=== PATIENT | female | born 1985 ===

== ENCOUNTER → 2023-04-03 13:02 | Outpatient (BNVA) | payer OTHER, SELFPAY | PROVIDERS: Visit Provider Physician Assistant Surgical ==

== ENCOUNTER 2023-05-08 12:53 | Outpatient (AMB) | payer OTHER, SELFPAY ==
--- NOTE | 2023-05-08 12:58 | A.OFFVIS_ITS ---
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 she has 2 family members who recently has LSG's with [facility]. Her goal is to be healthier, enjoy more activities.. She reports first being concerned about her weight 3 years ago. She has tried multiple methods of weight loss including different diet and exercise plans without permanent results. She lives with her boyfriend. She works 5 days per week, 7am - 3pm. She wakes at: 4:45 am bed at 8:30 pm Breakfast: 8:30 am - bagel with cream cheese OR bowl of cereal. water Lunch: skips lunch 3d/ week, 12 pm - leftovers mostly OR will get sushi or salad with grilled chicken and fruit. water Dinner: 4pm - sweet potato, chicken wings and corn. lemonade or flavored water After dinner: fruit after dinner or yogurt Other snacks: none Liquids: No soda, drinks sweetened drinks daily Alcohol intake: a few times per year, tobacco: none, marijuana: none Exercise: no membership now. 3d/week walks [employer] - over 2-3 hours. Last mammogram: baseline, all normal Last pap smear: up to date control method: Mirena IUD GENESIS:1 ESS:3 GERD:2 QOL:6 PFSH Surgical History Hx of eye surgery Hx of knee surgery Family History Mother Brain tumor Hypertension History of knee replacement Sister No problems noted. Brother Mental illness in member of household Social History (Updated 04/03/23 @ 13:39 by Mirian Negron LPN) Alcohol intake: current Alcohol intake frequency: holidays/special occasions only Patient Tobacco Use Status: Never used Tobacco Physical Exam Const General: cooperative, no acute distress and well developed Nutritional Appearance: obese Orientation/consciousness: patient oriented x3 HEENT Head: Yes normal to inspection Neck Neck: Yes normal visual inspection Thyroid: Thyroid normal Resp Effort & Inspection: normal respiratory effort Auscultation: clear to auscultation bilaterally Cardio Rate: regular rate Rhythm: regular rhythm Heart sounds: S1 normal heart sound present, S2 normal heart sound present and no murmurs GI Inspection: No distended and Yes obesity Palpation (GI): Soft to palpation, nontender and no guarding Skin General skin exam: no rashes or lesions noted and other (warm and dry) Wounds: no wounds Hair: normal Neuro General: patient oriented x3 Extrem General: Yes no pedal edema and Yes no calf tenderness Psych Attitude: cooperative Thought process: Normal thought process present Thought content: Normal thought content present Insight: Good insight present (Psych) Judgement: Good judgement present (Psych) Assessment & Plan Assessment & Plan (1) Morbid obesity: Code(s): E66.01 - Morbid (severe) obesity due to excess calories Plan: This is a 37 yo woman with morbid obesity who will start SWL program to prepare for bariatric surgery. Blood work, h pylori , CXR, ECG, Abd ULS and UGI have been ordered. She is being scheduled for RD and BH initial consultations. She will start SWL classes and watch at 3 classes before her next appt with Stefanie. 1. Adequate sleep of 7-8 hours per night discussed 2. Healthy meal plan - stop skipping meals and stop all sweetened drinks All meals/MR's need to take 20 minutes to complete 8:30am - 30 gram shake 12 pm - 30 gram shake 4 pm- dinner of 6 oz lean protein, 8 oz vegetable, 1 serving fruit 7 pm- bar or yogurt Exercise - Cardio 3 d week = walk or bowlfex 3d/wk - 350 calories 3d/week TBP - The importance of avoiding and breast feeding for at least 18 months after bariatric surgery was discussed in the information session and was reinforced today. Pt will purchase body composition analyzer (recommended list given to patient) and weight herself weekly. Next appt with me in 3 weeks. Text me with any questions and weekly weights. Patient is morbidly obese and is not considered stable at this time.?I spent a total of 60 minutes reviewing/updating records, examining the patient and counseling the patient on weight management as detailed above. (2) Asthma: Code(s): J45.909 - Unspecified asthma, uncomplicated (3) Pre-op evaluation: Code(s): Z01.818 - Encounter for other preprocedural examination (4) PCOS (polycystic ovarian syndrome): Code(s): E28.2 - Polycystic ovarian syndrome Orders: Orders Vitamin B12 and Folate Today E28.2 - Polycystic ovarian syndrome, E66.01 - Morbid (severe) obesity due to excess calories, J45.909 - Unspecified asthma, uncomplicated, Z01.818 - Encounter for other preprocedural examination Comprehensive Met. Panel Today E28.2 - Polycystic ovarian syndrome, E66.01 - Morbid (severe) obesity due to excess calories, J45.909 - Unspecified asthma, uncomplicated, Z01.818 - Encounter for other preprocedural examination C Reactive Protein Today E28.2 - Polycystic ovarian syndrome, E66.01 - Morbid (severe) obesity due to excess calories, J45.909 - Unspecified asthma, uncomplicated, Z01.818 - Encounter for other preprocedural examination Ferritin Today E28.2 - Polycystic ovarian syndrome, E66.01 - Morbid (severe) obesity due to excess calories, J45.909 - Unspecified asthma, uncomplicated, Z01.818 - Encounter for other preprocedural examination Hemoglobin A1c Today E28.2 - Polycystic ovarian syndrome, E66.01 - Morbid (severe) obesity due to excess calories, J45.909 - Unspecified asthma, uncomplicated, Z01.818 - Encounter for other preprocedural examination Insulin Today E28.2 - Polycystic ovarian syndrome, E66.01 - Morbid (severe) obesity due to excess calories, J45.909 - Unspecified asthma, uncomplicated, Z01.818 - Encounter for other preprocedural examination IRON PROFILE Today E28.2 - Polycystic ovarian syndrome, E66.01 - Morbid (severe) obesity due to excess calories, J45.909 - Unspecified asthma, uncomplicated, Z01.818 - Encounter for other preprocedural examination Lipid Panel Today E28.2 - Polycystic ovarian syndrome, E66.01 - Morbid (severe) obesity due to excess calories, J45.909 - Unspecified asthma, uncomplicated, Z01.818 - Encounter for other preprocedural examination PTHI Today E28.2 - Polycystic ovarian syndrome, E66.01 - Morbid (severe) obesity due to excess calories, J45.909 - Unspecified asthma, uncomplicated, Z01.818 - Encounter for other preprocedural examination TSH reflex Free T4 Today E28.2 - Polycystic ovarian syndrome, E66.01 - Morbid (severe) obesity due to excess calories, J45.909 - Unspecified asthma, uncomplicated, Z01.818 - Encounter for other preprocedural examination Vitamin A Today E28.2 - Polycystic ovarian syndrome, E66.01 - Morbid (severe) obesity due to excess calories, J45.909 - Unspecified asthma, uncomplicated, Z01.818 - Encounter for other preprocedural examination Vitamin B1 Today E28.2 - Polycystic ovarian syndrome, E66.01 - Morbid (severe) obesity due to excess calories, J45.909 - Unspecified asthma, uncomplicated, Z01.818 - Encounter for other preprocedural examination Vitamin D 25-OH Total Today E28.2 - Polycystic ovarian syndrome, E66.01 - Morbid (severe) obesity due to excess calories, J45.909 - Unspecified asthma, uncomplicated, Z01.818 - Encounter for other preprocedural examination Zinc Today E28.2 - Polycystic ovarian syndrome, E66.01 - Morbid (severe) obesity due to excess calories, J45.909 - Unspecified asthma, uncomplicated, Z01.818 - Encounter for other preprocedural examination ECG 12 lead EKG Today E28.2 - Polycystic ovarian syndrome, E66.01 - Morbid (severe) obesity due to excess calories, J45.909 - Unspecified asthma, uncomplicated, Z01.818 - Encounter for other preprocedural examination FL upper GI w air Today E28.2 - Polycystic ovarian syndrome, E66.01 - Morbid (severe) obesity due to excess calories, J45.909 - Unspecified asthma, uncomplicated, Z01.818 - Encounter for other preprocedural examination Complete Blood Count Auto Diff Today E28.2 - Polycystic ovarian syndrome, E66.01 - Morbid (severe) obesity due to excess calories, J45.909 - Unspecified asthma, uncomplicated, Z01.818 - Encounter for other preprocedural examination H Pylori Breath Test Today E28.2 - Polycystic ovarian syndrome, E66.01 - Morbid (severe) obesity due to excess calories, J45.909 - Unspecified asthma, uncomplicated, Z01.818 - Encounter for other preprocedural examination US abdomen comp w elastography Today E28.2 - Polycystic ovarian syndrome, E66.01 - Morbid (severe) obesity due to excess calories, J45.909 - Unspecified asthma, uncomplicated, Z01.818 - Encounter for other preprocedural examination XR chest 2V Today E28.2 - Polycystic ovarian syndrome, E66.01 - Morbid (severe) obesity due to excess calories, J45.909 - Unspecified asthma, uncomplicated, Z01.818 - Encounter for other preprocedural examination Referrals Behavioral Health Referral E28.2 - Polycystic ovarian syndrome, E66.01 - Morbid (severe) obesity due to excess calories, J45.909 - Unspecified asthma, uncomplicated, Z01.818 - Encounter for other preprocedural examination Nutrition/Dietitian Referral E28.2 - Polycystic ovarian syndrome, E66.01 - Morbid (severe) obesity due to excess calories, J45.909 - Unspecified asthma, uncomplicated, Z01.818 - Encounter for other preprocedural examination Coding Level of Care Code New Pt Level 5 (13580) Diagnoses Morbid obesity E66.01 Asthma J45.909 Pre-op evaluation Z01.818 PCOS (polycystic ovarian syndrome) E28.2
[2023-05-08 13:06] VITALS: BP 121/84; PULSE 103; TEMP 36.2; BMI 49.5
== END 2023-05-08 13:58 | disposition home or self-care (01) ==
PROVIDERS: Visit Provider Physician Assistant
DX: E66.01 Morbid (severe) obesity due to excess calories (principal); Z68.42 Body mass index [BMI] 45.0-49.9, adult; J45.909 Unspecified asthma, uncomplicated; E28.2 Polycystic ovarian syndrome
CPT/HCPCS: 99205

== ENCOUNTER → 2023-05-08 12:53 | Outpatient (BNVA) | payer OTHER, SELFPAY | PROVIDERS: Visit Provider Physician Assistant | DX: Z01.818 Encounter for other preprocedural examination (principal); E66.01 Morbid (severe) obesity due to excess calories; E28.2 Polycystic ovarian syndrome; J45.909 Unspecified asthma, uncomplicated | CPT/HCPCS: 99202 ==

== ENCOUNTER 2023-05-23 13:31 | Outpatient (AMB) | payer OTHER, SELFPAY ==
--- NOTE | 2023-05-23 13:45 | A.OFFVIS_ITS ---
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 she is going today Has made progress in other ways however. stopped emotional eating, instead jounrnaled her feelings and felt great. Exercise: none right now. her application consultant goals are to hike [place] and do more active things with him. Wants to walk/run a 5K for fundraising. [facility] online classes: completed , scored well Dietary counseling reduction Lifestyle Food frequency Water: daily, Soda: never and Juice: never Diagnosis Nutrition problem #1 overweight/obesity As related to (etiology) #1 excess energy intake and physical inactivity As evidenced by (sign/symptom) #1 high BMI Monitoring/Goals Nutrition problem monitoring total energy intake, level of knowledge/skill, total PRO intake, total CHO intake and weight Outcome progress progressing Learning/Education Readiness to learn excellent Stages of change action Educational materials provided Yes Most Recent Diabetes Results: No Data to Display [facility] Surgical History Hx of eye surgery Hx of knee surgery Family History Mother Brain tumor Hypertension History of knee replacement Sister No problems noted. Brother Mental illness in member of household Social History Alcohol intake: current Alcohol intake frequency: holidays/special occasions only Patient Tobacco Use Status: Never used Tobacco Assessment & Plan Assessment & Plan (1) Morbid obesity: Code(s): E66.01 - Morbid (severe) obesity due to excess calories Patient Instructions: She will get the shakes and bars today. Educated about macros and answered all questions. She will begin a consistent exercise routine, walking 30 minutes and increasing as tolerated. f/u with me 06/19 11:30 OV Coding Level of Care Code Nutr Indiv Intake (87397) Diagnoses Morbid obesity E66.01 Time Spent (min) 45
[2023-05-23 14:30] VITALS: BMI 49.1
== END 2023-05-23 14:14 | disposition home or self-care (01) ==
PROVIDERS: Visit Provider Dietitian, Registered
DX: E66.01 Morbid (severe) obesity due to excess calories (principal)

== ENCOUNTER → 2023-05-23 13:31 | Outpatient (BNVA) | payer OTHER, SELFPAY | PROVIDERS: Visit Provider Dietitian, Registered | DX: E66.01 Morbid (severe) obesity due to excess calories (principal); Z68.42 Body mass index [BMI] 45.0-49.9, adult; Z71.3 Dietary counseling and surveillance | CPT/HCPCS: 97802 ==

== ENCOUNTER 2023-05-29 13:04 | Outpatient (AMB) | payer OTHER, SELFPAY ==
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
== END 2023-05-29 13:17 | disposition home or self-care (01) ==
LOC: HO.HBST 13:04
PROVIDERS: Visit Provider Counselor Mental Health
DX: F41.1 Generalized anxiety disorder (principal); E66.01 Morbid (severe) obesity due to excess calories; E28.2 Polycystic ovarian syndrome
CPT/HCPCS: 90791

== ENCOUNTER → 2023-05-29 13:04 | Outpatient (BNVA) | payer OTHER, SELFPAY | PROVIDERS: Visit Provider Counselor Mental Health ==

== ENCOUNTER 2023-06-05 14:02 | Outpatient (AMB) | payer OTHER, SELFPAY ==
--- NOTE | 2023-06-05 14:04 | MHC.OFFVISWM ---
Intake VS Expanded 06/05/23 14:11 Height 5 ft 1 in Weight 257 lb 6.4 oz BMI 48.6 BP 116/67 Blood Pressure Location Rt brachial Blood Pressure Position Sitting Respiratory Rate 16 Pulse 89 Pulse Source Pulse Oximeter Temp 98.9 F Temperature Source Temporal Artery Scan Pulse Oximetry 96 Oxygen Delivery Method Room Air Body Fat 122.0 Body Fat Percentage 47.4 Free Fat Mass 135.4 Muscle Mass 128.6 Visceral Mass 15.0 Water Mass 97.0 BMR 1,937 Intake Visit Reasons: (OV) F/U SWL Allergies pollen extracts Allergy (Intermediate, Verified 06/05/23 14:12) Sneezing Medication List - Last Reconciled 06/05/23 by Daisha Chou PA-C albuterol sulfate 90 mcg/actuation 2 puffs inhalation Q6H PRN metformin 500 mg PO TID HPI HPI Comments History of Present Illness Details This is the patients second appt for SWL. Starting weight was 261.4 lbs on 05/08/23. TBWL is 3.4 lbs or 2 % TBWL. Meal plan: 8:30 am - Premier RTD 12 pm - same shake 4pm - 6 oz boneless chicken or fish and 6 oz frozen vegetables 8pm - bar or yogurt Exercise plan: not yet. wants to use her bowflex Pre op work up completed as follows: SWL classes - 04/22 appts - josie Shook RD appts - follow up on 06/19 H pylori - not done yet Labs, CXR and ECG - not done yet ULS and UGI - July 17 PFS Surgical History Hx of eye surgery Hx of knee surgery Family History Mother Brain tumor Hypertension History of knee replacement Sister No problems noted. Brother Mental illness in member of household Social History Alcohol intake: current Alcohol intake frequency: holidays/special occasions only Patient Tobacco Use Status: Never used Tobacco Physical Exam Vital Signs: Last Vital Signs Temp 98.9 F 06/05/23 14:11 Pulse 89 06/05/23 14:11 Resp 16 09/21/23 14:11 BP 116/67 06/05/23 14:11 Pulse Ox 96 06/05/23 14:11 Oxygen Delivery Method Room Air 06/05/23 14:11 BMI result Body Mass Index 48.6 Assessment & Plan Assessment & Plan (1) Morbid obesity: Code(s): E66.01 - Morbid (severe) obesity due to excess calories Plan: Great start and meal plan changes. Will buy scale today and send me weekly weights. No changes to meal plan H pylori today Will start exercise now - 5 d/week, Bowflex for 300 calories or TBP videos. All appts reviewed, will get labs, CXR and ECG done tomorrow. Next appt with me in 3 weeks. Patient is morbidly obese and is not considered stable at this time. I spent 30 minutes in total with patient reviewing/updating records, examining the patient and counseling the patient on weight management as detailed above. Coding Level of Care Code Est Pt Level 4 (18180) Diagnoses Morbid obesity E66.01
[2023-06-05 14:11] VITALS: BP 116/67; PULSE 89; RESP 16; TEMP 37.2; O2SAT 96; BMI 48.6
== END 2023-06-05 14:35 | disposition home or self-care (01) ==
PROVIDERS: Visit Provider Physician Assistant
DX: E66.01 Morbid (severe) obesity due to excess calories (principal)
CPT/HCPCS: 99214

== ENCOUNTER → 2023-06-05 14:02 | Outpatient (BNVA) | payer OTHER, SELFPAY | PROVIDERS: Visit Provider Physician Assistant | DX: E66.01 Morbid (severe) obesity due to excess calories (principal); Z68.42 Body mass index [BMI] 45.0-49.9, adult; Z11.0 Encounter for screening for intestinal infectious diseases | CPT/HCPCS: 99211; 99212 ==

== ENCOUNTER 2023-06-05 19:05 | Outpatient (REF) | payer OTHER, SELFPAY ==
[2023-06-06 16:40] LABS: H Pylori Breath Test Negative (Negative)
== END 2023-06-05 19:06 | disposition home or self-care (01) ==
LOC: HO.LNP 19:05
PROVIDERS: Visit Provider Physician Assistant
DX: E66.01 Morbid (severe) obesity due to excess calories (principal); E28.2 Polycystic ovarian syndrome; Z01.818 Encounter for other preprocedural examination; J45.909 Unspecified asthma, uncomplicated
CPT/HCPCS: 83013

== ENCOUNTER → 2023-06-17 16:32 | Outpatient (BNVA) | payer OTHER, SELFPAY | PROVIDERS: Visit Provider Dietitian, Registered | DX: E66.9 Obesity, unspecified (principal); Z71.3 Dietary counseling and surveillance | CPT/HCPCS: 97803 ==

== ENCOUNTER 2023-07-17 08:53 | Outpatient (REF) | payer OTHER, SELFPAY ==
--- NOTE | ~2023-07-17 | US_ITS ---
EXAMINATION: US COMPLETE ABDOMEN WITH LIVER ELASTOGRAPHY CLINICAL INFORMATION: Morbid obesity COMPARISON: None available. TECHNIQUE: Real-time imaging of the abdominal viscera. Noninvasive ultrasound liver fibrosis assessment is performed using Rachael ElastPQ point quantification shear wave elastography (2D-SWE) with a C5-2 MHz transducer. Multiple elastography samples are obtained. FINDINGS: PANCREAS: Normal. The visualized pancreatic head and body are normal in appearance. The remainder of the pancreas is obscured from visualization by the overlying bowel gas. ABDOMINAL AORTA: The proximal, middle, and distal aortic segments are normal in caliber. INFERIOR VENA CAVA: Visualized portions are normal. LIVER: There is diffusely increased echogenicity consistent with fatty infiltration/hepatocellular disease. No focal lesion or intrahepatic biliary duct dilatation. The right lobe measures 14.6 cm in length. The left lobe measures 10.5 cm in length. Portal flow is hepatopedal Shear wave liver elastography median stiffness is 1.99 m/s (reference: normal median stiffness is 1.3 m/s or less). IQR/median stiffness to assess sampling precision is 0.04 (reference: good quality data set is IQR/median stiffness of 0.15 or less). GALLBLADDER: Cholelithiasis is present without evidence of acute cholecystitis. The largest gallbladder stone measures 1.5 x 0.5 x 1.5 cm in size. COMMON BILE DUCT: Normal in caliber measuring 0.5 cm in diameter. RIGHT KIDNEY: Normal. No hydronephrosis. No renal calculi or focal parenchymal lesions. The kidney measures 13 cm in maximum dimension. LEFT KIDNEY: Normal. No hydronephrosis. No renal calculi or focal parenchymal lesions. The kidney measures 10.3 cm in maximum dimension. SPLEEN: Normal. The spleen measures 8 cm in maximum dimension. FREE FLUID: None. US/US abdomen comp w elastography IMPRESSION: 1. Cholelithiasis without evidence of acute cholecystitis. Increased echogenicity consistent with fatty infiltration/hepatocellular disease. 2. Liver elastography: Measurements are suggestive of compensated advanced chronic liver disease but need further test for confirmation. REFERENCE: Society of Radiologists in Ultrasound Liver Stiffness Thresholds (2019): LIVER STIFFNESS THRESHOLDS: *Liver Stiffness equal or less than 1.3 m/s: High probability of being normal. *Liver Stiffness less than 1.7 m/s: In the absence of other known clinical signs, rules out compensated advanced chronic liver disease. *Liver Stiffness 1.7-2.1 m/s: Suggestive of compensated advanced chronic liver disease but need further test for confirmation. *Liver Stiffness over 2.1 m/s: Rules in compensated advanced chronic liver disease. *Liver Stiffness over 2.4 m/s: Suggestive of clinically significant portal hypertension. QUALITY OF DATA SET: *IQR/Median value equal or less than 0.15 implies a quality data set. *IQR/Median value over 0.15 implies a poor quality data set. SIGNIFICANT CHANGE FROM PRIOR EXAM: Significant change if liver stiffness measurement is 10% or greater from prior exam. OTHER CONSIDERATIONS: The stage of liver fibrosis may be overestimated in the setting of acute hepatitis, liver inflammation, elevated liver function tests, hepatic vascular congestion, obstructive cholestasis, non-fasting state, and infiltrative diseases such as amyloidosis and lymphoma. In some patients with NAFLD, the liver stiffness thresholds for compensated advanced chronic liver disease may be lower. In causes other than viral hepatitis and NAFLD, liver stiffness thresholds are not well established.
--- NOTE | ~2023-07-17 | FL_ITS ---
EXAMINATION: XR FLUOROSCOPY UPPER GI WITH AIR CLINICAL INFORMATION: Preop evaluation prior to bariatric surgery COMPARISON: None TECHNIQUE: Fluoroscopic air contrast upper GI examination was performed utilizing standard techniques with thin and thick barium and effervescent granules. Numerous spot images were obtained. In addition, several fluoroscopic image hold cine runs were obtained. FINDINGS: Dual and single contrast images of the esophagus demonstrate normal caliber, contour, and mucosal pattern. No evidence of stricture, mass, or ulcerations identified. Esophageal peristalsis was normal. A small type I hiatal hernia is present. Esophageal reflux is seen up to level of the bekah. Dual contrast and single contrast images of the stomach demonstrated normal contour and mucosal pattern without evidence of mass, ulceration, or other abnormality. Contrast freely passed into the gastric antrum and duodenal bulb without delay. Single and air-contrast images of the duodenal bulb demonstrate no abnormality. The duodenal sweep has a normal appearance, course, and mucosal fold appearance. The imaged proximal jejunum has a normal fold pattern and caliber. FLUOROSCOPY TIME: 3 minutes 24 seconds Number of Spot Images: 8 Number of cine: 10 DOSE AREA PRODUCT: 3362 uGy-m2 (microgray-meter squared) FL/FL upper GI w air IMPRESSION: 1. Small hiatal hernia 2. Mild gastroesophageal reflux This procedure was performed by Tod Alonso PA-C and supervised by Dr. Sandra
--- NOTE | ~2023-07-17 | XR_ITS ---
EXAMINATION: XR CHEST CLINICAL INFORMATION: Morbid (severe) obesity due to excess calories COMPARISON: None available. TECHNIQUE: 2 views of the chest were obtained. FINDINGS: The lungs are well expanded and clear. No focal consolidation. Mild central peribronchial thickening is noted. No significant abnormality is noted involving the heart, mediastinum, bony thorax or soft tissues. Mild elevation of the right hemidiaphragm is noted. XR/XR chest 2V IMPRESSION: No acute cardiopulmonary disease.
== END 2023-07-17 08:54 | disposition home or self-care (01) ==
LOC: HO.US 08:53
PROVIDERS: Visit Provider Physician Assistant
DX: Z01.818 Encounter for other preprocedural examination (principal); E66.01 Morbid (severe) obesity due to excess calories; E28.2 Polycystic ovarian syndrome; J45.909 Unspecified asthma, uncomplicated
CPT/HCPCS: 71046; 74246; 76705; 76981

== ENCOUNTER → 2023-07-17 08:59 | Outpatient (BNV) | payer OTHER, SELFPAY | PROVIDERS: Visit Provider Radiology Diagnostic Radiology | DX: E66.01 Morbid (severe) obesity due to excess calories (principal); Z01.818 Encounter for other preprocedural examination | CPT/HCPCS: 74246 ==